=== PATIENT | male | born 1935 | race African-American/Black ===

== ENCOUNTER 2018-11-20 08:54 | Emergency (ER) | payer OTHER ==
[2018-11-20 09:01] VITALS: BP 136/66; PULSE 68; TEMP 97.6; BMI 29.7
[2018-11-20] MEDS ORDERED: DIPHTH,PERTUSS(ACELL),TET 0.5 ML DISP.SYRIN IM ONE ×2 (09:31→09:56)
--- NOTE | 2018-11-20 10:01 | PDOC ---
History of Present Illness - General Chief Complaint: Laceration Stated Complaint: Laceration Time Seen by Provider: 11/20/18 09:11 History Source: Patient Exam Limitations: No Limitations - History of Present Illness Initial Comments: 11/20/18 09:32 82 year old male with medical history of DVT, DM, HTN, CHOL, no significant surgical history present today with laceration to right hand. States sustained laceration when he was pushing garbage in shoot, something from his garbage sliced his hand. States stinging sensation. Denies fever, chills or drainage from wound Timing/Duration: reports: yesterday Severity: Yes: mild Location: reports: extremities Respiratory Risk Factors: reports: no cause identified Associated Symptoms: reports: denies symptoms Past History - Travel Traveled outside of the country in the last 30 days: No - Past Medical History Allergies/Adverse Reactions: Allergies Allergy/AdvReac Type Severity Reaction Status Date / Time No Known Allergies Allergy Verified 11/20/18 08:56 Home Medications: Ambulatory Orders Cephalexin [Keflex] 500 mg PO TID #15 capsule 11/20/18 COPD: No DVT: Yes Diabetes: Yes HTN: Yes Hypercholesterolemia: Yes Other medical history: "i take a pill for my kidneys" - Immunization History Immunization Up to Date: No - Suicide/Smoking/Psychosocial Hx Smoking History: Never smoked Have you smoked in the past 12 months: No Hx Alcohol Use: No Drug/Substance Use Hx: No Substance Use Type: None Review of Systems - Review of Systems Able to Perform ROS?: Yes Is the patient limited Japanese proficient: No Constitutional: No: Chills, Fever HEENTM: No: Nose Congestion, Throat Pain Respiratory: No: Cough, Orthopnea, Shortness of Breath Cardiac (ROS): No: Edema, Palpitations ABD/GI: No: Abdominal Distended, Poor Appetite : No: Burning, Dysuria Musculoskeletal: No: Back Pain Integumentary: Yes: Other (laceration to right hand) Neurological: No: Numbness, Paresthesia *Physical Exam - Vital Signs Last Vital Signs Temp Pulse Resp BP Pulse Ox 97.6 F 68 18 136/66 99 11/20/18 08:56 11/20/18 08:56 11/20/18 08:56 11/20/18 08:56 11/20/18 08:56 - Physical Exam General Appearance: Yes: Nourished, Appropriately Dressed. No: Apparent Distress HEENT: positive: JALEN, TMs Normal, Pharynx Normal Neck: positive: Supple. negative: Lymphadenopathy (R), Lymphadenopathy (L) Respiratory/Chest: positive: Lungs Clear, Normal Breath Sounds Cardiovascular: positive: Regular Rhythm, Regular Rate, S1, S2 Musculoskeletal: positive: Normal Inspection Extremity: positive: Normal Capillary Refill Integumentary: positive: Other (+superficial laceration to right hand between thumb and 2nd digit ) Neurologic: positive: pump servicer II-XII NML intact, Fully Oriented Moderate Sedation - Procedure Monitoring Vital Signs: Procedure Monitoring Vital Signs Temperature 97.6 F 11/20/18 08:56 Pulse Rate 68 11/20/18 08:56 Respiratory Rate 18 11/20/18 08:56 Blood Pressure 136/66 11/20/18 08:56 O2 Sat by Pulse Oximetry (%) 99 11/20/18 08:56 Procedures - Laceration/Wound Repair Right Hand Wound Length: 2.6 to 5.0 cm Wound Explored: clean Wound's Depth, Shape: superficial Irrigated w/ Saline: Yes Betadine Prep: Yes Anesthesia: 2% Lidocaine Wound Debrided: minimal Wound Repaired With: Sutures Suture Size/Type: 4:0 Number of Sutures: 4 Layer Closure: No Sterile Dressing Applied: Yes Splint Applied: No Medical Decision Making - Medical Decision Making 11/20/18 10:03 11/20/18 10:03 11/20/18 10:03 82 year old male with medical history of DVT, DM, HTN, CHOL, no significant surgical history present today with laceration to right hand. States sustained laceration when he was pushing garbage in shoot, something from his garbage sliced his hand. States stinging sensation. Denies fever, chills or drainage from wound Plan repair wound tetanus vaccine rx: keflex *DC/Admit/Observation/Transfer Diagnosis at time of Disposition: Laceration - Discharge Dispostion Disposition: HOME Condition at time of disposition: Good Decision to Admit order: No - Prescriptions Prescriptions: Cephalexin [Keflex] 500 mg PO TID #15 capsule - Referrals Referrals: ON STAFF,NOT [Primary Care Provider] - - Patient Instructions Printed Discharge Instructions: DI for Laceration Repair Additional Instructions: Please keep dressing in place until tomorrow am Do not get dressing wet tonight Remove bandage tomorrow May wash gently with soap and water starting tomorrow May apply bacitracin or neosporin every other day starting tomorrow Return for suture removal in 10- 14 days (11/30/18) - Post Discharge Activity Forms/Work/School Notes: Back to Work
== END 2018-11-20 10:08 | disposition home or self-care (01) ==
LOC: JERFT 08:54
PROC: 3E0234Z Introduction of Serum, Toxoid and Vaccine into Muscle, Percutaneous Approach (ICD-10-PCS; principal; 2018-11-20)
PROC: 0HQFXZZ Repair Right Hand Skin, External Approach (ICD-10-PCS; 2018-11-20)
DX: S61.411A Laceration without foreign body of right hand, initial encounter (principal); W26.9XXA Contact with unspecified sharp object(s), initial encounter; Y93.E9 Activity, other interior property and clothing maintenance; Y92.038 Other place in apartment as the place of occurrence of the external cause; Y99.8 Other external cause status; I10 Essential (primary) hypertension; E78.00 Pure hypercholesterolemia, unspecified; E11.9 Type 2 diabetes mellitus without complications; Z86.718 Personal history of other venous thrombosis and embolism
CPT/HCPCS: 12002-25; 90471; 90715; 99282-25

== ENCOUNTER 2018-11-30 10:28 | Emergency (ER) | payer OTHER ==
[2018-11-30 10:53] VITALS: BP 122/53; PULSE 61; TEMP 98; BMI 27.3
[2018-11-30] MEDS ORDERED: ACETAMINOPHEN 325 MG SUPP.RECT PR ONE (11:00)
--- NOTE | 2018-11-30 11:59 | PDOC ---
Suture Removal/Wound Check HPI - History of Present Illness Chief Complaint: Suture/Staple Removal(Here) Stated Complaint: REMOVE STITCHES Time Seen by Provider: 11/30/18 11:54 History Source: Yes: Patient Exam Limitations: Yes: No Limitations (Removed 4 sutures from right hand. No signs of secondary infection.) Past History - Past Medical History Allergies/Adverse Reactions: Allergies Allergy/AdvReac Type Severity Reaction Status Date / Time No Known Allergies Allergy Verified 11/20/18 08:56 Home Medications: Ambulatory Orders Cephalexin [Keflex] 500 mg PO TID #15 capsule 11/20/18 COPD: No DVT: Yes Diabetes: Yes HTN: Yes Hypercholesterolemia: Yes - Immunization History Immunization Up to Date: No - Suicide/Smoking/Psychosocial Hx Smoking History: Unknown if ever smoked Have you smoked in the past 12 months: No Hx Alcohol Use: No Drug/Substance Use Hx: No Substance Use Type: None *Physical Exam - Vital Signs Last Vital Signs Temp Pulse Resp BP Pulse Ox 98 F 61 18 122/53 L 99 11/30/18 10:51 11/30/18 10:51 11/30/18 10:51 11/30/18 10:51 11/30/18 10:51 Moderate Sedation - Procedure Monitoring Vital Signs: Procedure Monitoring Vital Signs Temperature 98 F 11/30/18 10:51 Pulse Rate 61 11/30/18 10:51 Respiratory Rate 18 11/30/18 10:51 Blood Pressure 122/53 L 11/30/18 10:51 O2 Sat by Pulse Oximetry (%) 99 11/30/18 10:51 *DC/Admit/Observation/Transfer Diagnosis at time of Disposition: Visit for suture removal - Discharge Dispostion Disposition: HOME Condition at time of disposition: Stable - Referrals - Patient Instructions Printed Discharge Instructions: DI for Suture Removal - Post Discharge Activity
== END 2018-11-30 12:06 | disposition home or self-care (01) ==
LOC: JERFT 10:28
DX: Z48.817 Encounter for surgical aftercare following surgery on the skin and subcutaneous tissue (principal); Z48.02 Encounter for removal of sutures
CPT/HCPCS: 99281-25